=== PATIENT | female | born 1980 | race Hispanic/Latino ===

== ENCOUNTER → 2023-03-09 | Outpatient (CLI) | payer BC ==
[~2023-03-09] MED LIST: IOHEXOL-350 75 ML VIAL IV ONE
== END | disposition home or self-care (01) ==
LOC: RAH 08:57
PROVIDERS: ATTEND Internal Medicine
DX: K76.89 Other specified diseases of liver (principal); R10.31 Right lower quadrant pain; R19.03 Right lower quadrant abdominal swelling, mass and lump
CPT/HCPCS: 74178; Q9967